=== PATIENT | male | born 1985 | race American Indian/Alaskan Native ===

== ENCOUNTER 2016-12-16 05:20 | Emergency (ER) | payer MEDICAID ==
[2016-12-16 05:43] VITALS: BP 126/86
[2016-12-16 05:56] LABS: Basophils % (Auto) 1.1 % (0.0-1.8); Eosinophils % (Auto) 6.1 % (0.0-4.3); Hematocrit 42.5 % (35.5-45.6); Hemoglobin 14.4 gm/dl (11.8-15.2); Mean Corpuscular HGB Conc 34 % (32-34); Mean Corpuscular Hemoglobin 31 pg (28-32); Mean Corpuscular Volume 92 fl (84-94); Platelet Count 264 K/mm3 (140-440); Red Blood Count 4.63 M/mm3 (3.65-5.03); Red Cell Distribution Width 13.6 % (13.2-15.2); White Blood Count 6.2 K/mm3 (4.5-11.0)
[2016-12-16 06:16] LABS: Anion Gap 17 mmol/L; Blood Urea Nitrogen 12 mg/dL (9-20); Calcium 9.1 mg/dL (8.4-10.2); Carbon Dioxide 23 mmol/L (22-30); Glucose 105 mg/dL (75-100); Potassium 3.7 mmol/L (3.6-5.0); Sodium 135 mmol/L (137-145)
--- NOTE | 2016-12-19 00:38 | ED Elopement Review ---
ED Pt Elopement review - Results review Lab results: Laboratory Tests 12/16/16 12/16/16 05:44 05:44 WBC 6.2 RBC 4.63 Hgb 14.4 Hct 42.5 MCV 92 MCH 31 MCHC 34 RDW 13.6 Plt Count 264 Lymph % (Auto) 37.4 H George % (Auto) 11.0 H Eos % (Auto) 6.1 H Baso % (Auto) 1.1 Lymph # 2.3 George # 0.7 Eos # 0.4 Baso # 0.1 Seg Neutrophils % 44.4 Seg Neutrophils # 2.8 Sodium 135 L Potassium 3.7 Chloride 99.0 Carbon Dioxide 23 Anion Gap 17 BUN 12 Creatinine 1.2 Estimated GFR > 60 BUN/Creatinine Ratio 10.00 Glucose 105 H Calcium 9.1 Troponin T < 0.010 - Call Back decision Pt Call Back Decision: Pt to F/U with PMD
== END 2016-12-16 05:45 | disposition left against medical advice (07) ==
LOC: ED 05:20
DX: R07.9 Chest pain, unspecified (principal); Z53.21 Procedure and treatment not carried out due to patient leaving prior to being seen by health care provider
CPT/HCPCS: 36415; 80048; 84484; 85025; 93005; 93010

== ENCOUNTER 2020-10-01 01:44 | Emergency (ER) | payer MEDICAID ==
[2020-10-01] MEDS ORDERED: ONDANSETRON 4 MG ODT TAB ONE (01:52)
[2020-10-01 01:53] VITALS: BP 111/75
[2020-10-01] MEDS ORDERED: ONDANSETRON 4 MG ODT TAB PO ONE (01:53)
[2020-10-01] MEDS ORDERED: METOCLOPRAMIDE 10 MG/2 ML INJ IV ONE (03:28)
[2020-10-01] MEDS ORDERED: ALUM-MAG HYDROXIDE-SIMETHICONE 200-200-20MG/5ML ORAL LIQD 30 ML PO ONE (03:28)
[2020-10-01] MEDS ORDERED: LIDOCAINE VISCOUS 2% 15 ML ORAL LIQD PO ONE (03:28)
[2020-10-01] MEDS ORDERED: SODIUM CHLORIDE 0.9% 1000 ML 1,000 ML IV ONE (03:28)
[2020-10-01] MEDS ORDERED: FAMOTIDINE 20 MG/2 ML INJ IV ONE (03:28)
[2020-10-01] MEDS ORDERED: diphenhydrAMINE 50 MG/ML VIAL IV ONE (03:28)
--- NOTE | 2020-10-01 03:33 | Emergency Department Report ---
ED N/V/D HPI - General Chief complaint: Nausea/Vomiting/Diarrhea Stated complaint: EMESIS/HICCUPS/EMESIS Source: patient Mode of arrival: Ambulatory Limitations: No Limitations - History of Present Illness Initial comments: Patient is a 34-year-old -[place]osoth[place] male with no past medical history presents to the ED with complaint of acute onset persistent epigastric pain with nausea and vomiting and sore throat for the last 2 days. Patient states that the pain in the epigastric radiates to the chest with a burning sensation into her throat. Patient states that he has not been able to keep anything down in the last 24 hours, and that the last time he had nausea and vomiting was 3 hours ago. Patient denies shortness of breath, cough, diarrhea, dizziness, syncope, headache, dysuria, urinary frequency and urgency, hemoptysis, hematemesis, metaplasia, back pain or neck pain, nasal and sinus congestion. MD complaint: nausea, vomiting, abdominal pain (Epigastric pain), other (Sore throat ) -: Sudden, days(s) (2) Description of Vomiting: food contents, watery Associated Abdominal Pain: Yes (Epigastric pain) Location: epigastric Radiation: chest, other (Throat) Severity: moderate Pain Scale: 7 Quality: aching, sharp, constant, other (Burning) Consistency: constant Improves with: none Worsens with: eating, vomiting Context: possible food poisoning Associated Symptoms: denies other symptoms, malaise, nausea/vomiting. denies: myalgias, chest pain, cough, diaphoresis, fever/chills, headaches, loss of appetite, rash, dysuria, shortness of breath, syncope, other - Related Data Previous Rx's Medication Instructions Recorded Last Taken Type Albuterol Sulfate [Ventolin HFA] 1 - 2 puff IH Q4H PRN #1 hfa.aer.ad 02/27/15 Unknown Rx Dicyclomine [Bentyl] 20 mg PO Q6H PRN #30 tablet 10/02/20 Unknown Rx Famotidine [Pepcid] 20 mg PO BID #30 tablet 10/02/20 Unknown Rx Ondansetron [Zofran Odt] 4 mg PO Q8HR PRN #20 tab.rapdis 10/02/20 Unknown Rx Allergies Allergy/AdvReac Type Severity Reaction Status Date / Time No Known Allergies Allergy Unverified 02/27/15 07:32 ED Review of Systems ROS: Stated complaint: EMESIS/HICCUPS/EMESIS Other details as noted in HPI Constitutional: denies: chills, fever Eyes: denies: eye pain, eye discharge, vision change ENT: throat pain. denies: ear pain Respiratory: denies: cough, shortness of breath, wheezing Cardiovascular: denies: chest pain, palpitations Endocrine: no symptoms reported Gastrointestinal: abdominal pain (Epigastric), nausea, vomiting. denies: diarr hea Genitourinary: denies: urgency, dysuria Musculoskeletal: denies: back pain, joint swelling, arthralgia Skin: denies: rash, lesions Neurological: denies: headache, weakness, paresthesias Psychiatric: denies: anxiety, depression Hematological/Lymphatic: denies: easy bleeding, easy bruising ED Past Medical Hx - Past Medical History Additional medical history: Bronchitis - Surgical History Additional Surgical History: Tonsils, hernia - Social History Smoking Status: Current Every Day Smoker - Medications Home Medications: Home Medications Medication Instructions Recorded Confirmed Last Taken Type Albuterol Sulfate [Ventolin HFA] 1 - 2 puff IH Q4H PRN #1 hfa.aer.ad 02/27/15 Unknown Rx Dicyclomine [Bentyl] 20 mg PO Q6H PRN #30 tablet 10/02/20 Unknown Rx Famotidine [Pepcid] 20 mg PO BID #30 tablet 10/02/20 Unknown Rx Ondansetron [Zofran Odt] 4 mg PO Q8HR PRN #20 tab.rapdis 10/02/20 Unknown Rx ED Physical Exam - General Limitations: No Limitations General appearance: alert, in no apparent distress - Head Head exam: Present: atraumatic, normocephalic, normal inspection - Eye Eye exam: Present: normal appearance, PERRL, EOMI Pupils: Present: normal accommodation - ENT ENT exam: Present: normal exam, normal orophraynx, mucous membranes moist, TM's normal bilaterally, normal external ear exam - Neck Neck exam: Present: normal inspection, full ROM - Respiratory Respiratory exam: Present: normal lung sounds bilaterally. Absent: respiratory distress, wheezes, rales, rhonchi, chest wall tenderness, accessory muscle use, prolonged expiratory - Cardiovascular Cardiovascular Exam: Present: regular rate, normal rhythm, normal heart sounds. Absent: systolic murmur, diastolic murmur, rubs, gallop - GI/Abdominal GI/Abdominal exam: Present: soft, normal bowel sounds. Absent: distended, tenderness, guarding, rebound, rigid, hyperactive bowel sounds, hypoactive bowel sounds, organomegaly - Extremities Exam Extremities exam: Present: normal inspection, full ROM, normal capillary refill - Back Exam Back exam: Present: normal inspection, full ROM. Absent: tenderness, CVA tenderness (R), CVA tenderness (L), muscle spasm, paraspinal tenderness, vertebral tenderness - Neurological Exam Neurological exam: Present: alert, oriented X3, CN II-XII intact, normal gait, reflexes normal - Psychiatric Psychiatric exam: Present: normal affect, normal mood - Skin Skin exam: Present: warm, dry, intact, normal color. Absent: rash ED Course Vital Signs 10/01/20 01:51 Temperature 98.7 F Pulse Rate 88 Respiratory 18 Rate Blood Pressure 111/75 O2 Sat by Pulse 100 Oximetry ED Medical Decision Making - Lab Data Result diagrams: 10/01/20 04:01 10/01/20 04:01 - Medical Decision Making This is a 34-year-old -[place] male with no past medical history presents to the ED with complaint of acute onset persistent epigastric pain with nausea and vomiting and sore throat for the last 2 days. Patient states that the pain in the epigastric radiates to the chest with a burning sensation into her throat. Patient states that he has not been able to keep anything down in the last 24 hours, and that the last time he had nausea and vomiting was 3 hours ago. In the ED, patient is alert and oriented x3 and is not in any distress but anxious during physical exam. Patient was treated for nausea and vomiting, also given antacids and pain medications. Lab test results were reviewed and showed acute leukocytosis of 15,200, acute hyponatremia of 133 mmol/L and acute hypochloremia of 94.3, as well as elevated AST of 43. Patient also received normal saline 1 L IV bolus x1. On reevaluation, patient nausea and vomiting and epigastric pain resolved. Patient passed oral fluid challenge in the ED and did not have any nausea or vomiting during his ED stay. Especially after giving him medications for nausea and vomiting. Patient was therefore discharged home and advised to maintain a clear liquid diet for 12 to 24 hours, take medication as needed for nausea and vomiting and epigastric pain as well as the antacids. Patient was also advised to return to the ED immediately if symptoms get worse, otherwise follow-up with his primary care physician in 5 to 7 days for reevaluation. - Differential Diagnosis Viral gastroenteritis; GERD; gastritis; viral syndrome; dehydration Critical care attestation.: If time is entered above; I have spent that time in minutes in the direct care of this critically ill patient, excluding procedure time. ED Disposition Clinical Impression: Viral gastroenteritis, Nausea and vomiting in adult GERD (gastroesophageal reflux disease) Qualifiers: Esophagitis presence: esophagitis presence not specified Qualified Code(s): K21.9 - Gastro-esophageal reflux disease without esophagitis Disposition: TO HOME OR SELFCARE Is pt being admited?: No Does the pt Need Aspirin: No Condition: Stable Instructions: Viral Gastroenteritis, Adult, [id number], Nausea and Vomiting, Adult, [id number], Gastroesophageal Reflux Disease, Adult, [id number] Additional Instructions: All lab test results were reviewed and are all nonactionable. Therefore maintain a clear liquid diet for 12 to 24 hours, drink plenty of fluids and take medication as needed for nausea and vomiting. Return to the ED immediately if symptoms get worse. Otherwise follow-up with your primary care physician in 5 to 7 days for reevaluation. Prescriptions: Dicyclomine [Bentyl] 20 mg PO Q6H PRN #30 tablet PRN Reason: Abdominal pain Famotidine [Pepcid] 20 mg PO BID #30 tablet Ondansetron [Zofran Odt] 4 mg PO Q8HR PRN #20 tab.rapdis PRN Reason: Nausea Referrals: CHRISTINA STOUT [Other] - 3-5 Days Print Language: MONGOLIAN
[2020-10-01 06:51] LABS: Basophils # (Auto) 0.1 K/mm3 (0.0-0.1); Basophils % (Auto) 0.3 % (0.0-1.8); Eosinophils % (Auto) 0.1 % (0.0-4.3); Hematocrit 42.6 % (35.5-45.6); Hemoglobin 14.5 gm/dl (11.8-15.2); Lymphocytes # (Auto) 2.5 K/mm3 (1.2-5.4); Lymphocytes % (Auto) 16.4 % (13.4-35.0); Mean Corpuscular HGB Conc 34 % (32-34); Mean Corpuscular Volume 92 fl (84-94); Monocytes # (Auto) 1.5 K/mm3 (0.0-0.8); Monocytes % (Auto) 9.6 % (0.0-7.3); Red Blood Count 4.61 M/mm3 (3.65-5.03); Red Cell Distribution Width 13.6 % (13.2-15.2)
[2020-10-01 06:56] LABS: Alanine Aminotransferase 33 units/L (7-56); Albumin 4.7 g/dL (3.9-5); BUN/Creatinine Ratio 14; Blood Urea Nitrogen 17 mg/dL (9-20); Calcium 9.1 mg/dL (8.4-10.2); Hemolysis Index 5
[2020-10-01 07:26] LABS: Platelet Count 330 K/mm3 (140-440)
== END 2020-10-01 07:00 | disposition home or self-care (01) ==
LOC: ED 01:44
DX: K21.9 Gastro-esophageal reflux disease without esophagitis (principal); A08.4 Viral intestinal infection, unspecified; R11.2 Nausea with vomiting, unspecified; F17.200 Nicotine dependence, unspecified, uncomplicated; Z98.890 Other specified postprocedural states; Z79.899 Other long term (current) drug therapy
CPT/HCPCS: 36415; 80053; 83690; 85025; 99283; J1200; J2765; J7030; Q0162